=== PATIENT | female | born 1970 | race Caucasian/White ===

== ENCOUNTER 2018-07-12 12:47 | Emergency (ER) | payer MEDICAID ==
[~2018-07-12] VITALS: Ht 175.3 cm; Wt 66.2 kg
[2018-07-12 15:57] VITALS: BP 185/93
[2018-07-12] MEDS ORDERED: KETOROLAC TROMETH 60MG/2ML VIAL IM ONE (16:00)
== END 2018-07-12 17:06 | disposition home or self-care (01) ==
LOC: ER 12:47
DX: S93.402A Sprain of unspecified ligament of left ankle, initial encounter (principal); J45.909 Unspecified asthma, uncomplicated; F41.9 Anxiety disorder, unspecified; W51.XXXA Accidental striking against or bumped into by another person, initial encounter; Y93.89 Activity, other specified; Y92.89 Other specified places as the place of occurrence of the external cause; Y99.8 Other external cause status
CPT/HCPCS: 73610; 96372; 99284; J1885